=== PATIENT | male | born 1990 | race Caucasian/White ===

== ENCOUNTER 2023-05-24 12:01 | Emergency (ER) | payer OTHER, BC ==
[2023-05-24] MEDS ORDERED: Ibuprofen 600 MG Tab PO ONE (13:50)
== END 2023-05-24 13:50 | disposition home or self-care (01) ==
LOC: JD.ED 12:01
DX: S80.12XA Contusion of left lower leg, initial encounter (principal); S06.0X1A Concussion with loss of consciousness of 30 minutes or less, initial encounter; S09.90XA Unspecified injury of head, initial encounter; S00.01XA Abrasion of scalp, initial encounter; V89.2XXA Person injured in unspecified motor-vehicle accident, traffic, initial encounter
CPT/HCPCS: 70450; 99284; A9270; 99283